=== PATIENT | male | born 1945 | race Caucasian/White ===

== ENCOUNTER → 2018-02-21 | Outpatient (CLI) | payer MEDICARE, OTHER ==
[2018-02-21 17:09] LABS: ANION GAP 11 (5-19); BLOOD UREA NITROGEN 22 mg/dL (7-20); CALCIUM 9.3 mg/dL (8.4-10.2); CARBON DIOXIDE 23 mmol/L (22-30); CHLORIDE 106 mmol/L (98-107); GLUCOSE 194 mg/dL (75-110); POTASSIUM 4.6 mmol/L (3.6-5.0); SODIUM 140.1 mmol/L (137-145)
== END ==
LOC: LAB 16:32
PROVIDERS: ATTEND Internal Medicine Cardiovascular Disease
DX: I10 Essential (primary) hypertension (principal); R60.9 Edema, unspecified; R06.00 Dyspnea, unspecified
CPT/HCPCS: 36415; 80048

== ENCOUNTER → 2018-03-10 | Outpatient (CLI) | payer MEDICARE, OTHER ==
[2018-03-10 18:11] LABS: ANION GAP 10 (5-19); BLOOD UREA NITROGEN 23 mg/dL (7-20); CALCIUM 9.5 mg/dL (8.4-10.2); CARBON DIOXIDE 24 mmol/L (22-30); CHLORIDE 106 mmol/L (98-107); GLUCOSE 115 mg/dL (75-110); POTASSIUM 4.7 mmol/L (3.6-5.0); SODIUM 140.2 mmol/L (137-145)
== END ==
LOC: LAB 17:27
PROVIDERS: ATTEND Internal Medicine Cardiovascular Disease
DX: I10 Essential (primary) hypertension (principal); R60.9 Edema, unspecified; Z79.899 Other long term (current) drug therapy
CPT/HCPCS: 36415; 80048

== ENCOUNTER → 2018-04-14 | Outpatient (CLI) | payer MEDICARE, OTHER ==
[2018-04-14 08:51] LABS: ALANINE AMINOTRANSFERASE 23 U/L (21-72); ALBUMIN 3.9 g/dL (3.5-5.0); ALKALINE PHOSPHATASE 101 U/L (38-126); ANION GAP 15 (5-19); ASPARTATE AMINO TRANSFERASE 14 U/L (17-59); BILIRUBIN,DIRECT 0.3 mg/dL (0.0-0.4); BILIRUBIN,TOTAL 0.6 mg/dL (0.2-1.3); BLOOD UREA NITROGEN 39 mg/dL (7-20); CALCIUM 9.5 mg/dL (8.4-10.2); CARBON DIOXIDE 23 mmol/L (22-30); CHLORIDE 102 mmol/L (98-107); CHOLESTEROL 151.59 mg/dL (0-200); GLUCOSE 161 mg/dL (75-110); POTASSIUM 5.3 mmol/L (3.6-5.0); SODIUM 140.2 mmol/L (137-145); TOTAL PROTEIN 7.2 g/dL (6.3-8.2); TRIGLYCERIDES 190 mg/dL (<150)
[2018-04-14 09:02] LABS: DIRECT LDL 86 mg/dL (<100)
== END ==
LOC: LAB 08:19
PROVIDERS: ATTEND Internal Medicine Cardiovascular Disease
DX: E78.2 Mixed hyperlipidemia (principal); I10 Essential (primary) hypertension; R60.9 Edema, unspecified; Z79.899 Other long term (current) drug therapy
CPT/HCPCS: 36415; 80048; 80061; 80076

== ENCOUNTER → 2018-05-07 | Outpatient (CLI) | payer MEDICARE, OTHER ==
[2018-05-07 10:52] LABS: ALANINE AMINOTRANSFERASE 18 U/L (21-72); ALBUMIN 3.9 g/dL (3.5-5.0); ALKALINE PHOSPHATASE 95 U/L (38-126); ANION GAP 14 (5-19); ASPARTATE AMINO TRANSFERASE 15 U/L (17-59); BILIRUBIN,DIRECT 0.3 mg/dL (0.0-0.4); BILIRUBIN,TOTAL 0.5 mg/dL (0.2-1.3); BLOOD UREA NITROGEN 30 mg/dL (7-20); CALCIUM 9.3 mg/dL (8.4-10.2); CARBON DIOXIDE 23 mmol/L (22-30); CHLORIDE 103 mmol/L (98-107); CHOLESTEROL 156.19 mg/dL (0-200); GLUCOSE 129 mg/dL (75-110); POTASSIUM 4.6 mmol/L (3.6-5.0); SODIUM 140.2 mmol/L (137-145); TOTAL PROTEIN 7.1 g/dL (6.3-8.2); TRIGLYCERIDES 189 mg/dL (<150)
[2018-05-07 11:02] LABS: DIRECT LDL 93 mg/dL (<100)
[2018-05-07 11:06] LABS: VLDL CHOLESTEROL 37.8 mg/dL (10-31)
== END ==
LOC: LAB 09:37
PROVIDERS: ATTEND Internal Medicine Cardiovascular Disease
DX: E78.2 Mixed hyperlipidemia (principal); E11.9 Type 2 diabetes mellitus without complications; I10 Essential (primary) hypertension; E66.01 Morbid (severe) obesity due to excess calories; Z79.899 Other long term (current) drug therapy
CPT/HCPCS: 36415; 80048; 80061; 80076; 83036; 84443

== ENCOUNTER → 2018-08-24 | Outpatient (CLI) | payer MEDICARE, OTHER ==
[2018-08-24 08:55] LABS: ALANINE AMINOTRANSFERASE 29 U/L (21-72); ALBUMIN 3.5 g/dL (3.5-5.0); ALKALINE PHOSPHATASE 85 U/L (38-126); ANION GAP 8 (5-19); ASPARTATE AMINO TRANSFERASE 17 U/L (17-59); BILIRUBIN,DIRECT 0.1 mg/dL (0.0-0.4); BILIRUBIN,TOTAL 0.3 mg/dL (0.2-1.3); BLOOD UREA NITROGEN 23 mg/dL (7-20); CALCIUM 9.6 mg/dL (8.4-10.2); CARBON DIOXIDE 29 mmol/L (22-30); CHLORIDE 104 mmol/L (98-107); CHOLESTEROL 133.71 mg/dL (0-200); GLUCOSE 107 mg/dL (75-110); POTASSIUM 4.9 mmol/L (3.6-5.0); SODIUM 140.8 mmol/L (137-145); TOTAL PROTEIN 6.6 g/dL (6.3-8.2); TRIGLYCERIDES 171 mg/dL (<150)
[2018-08-24 09:06] LABS: DIRECT LDL 79 mg/dL (<100)
[2018-08-24 09:07] LABS: VLDL CHOLESTEROL 34.2 mg/dL (10-31)
== END ==
LOC: LAB 08:07
PROVIDERS: ATTEND Physician Assistant
DX: K59.00 Constipation, unspecified (principal); E78.2 Mixed hyperlipidemia; R06.02 Shortness of breath; I10 Essential (primary) hypertension; Z79.899 Other long term (current) drug therapy
CPT/HCPCS: 36415; 80048; 80061; 80076; 83880; 84443

== ENCOUNTER → 2018-09-14 | Outpatient (CLI) | payer MEDICARE, OTHER ==
[2018-09-14 08:03] LABS: ANION GAP 11 (5-19); BLOOD UREA NITROGEN 32 mg/dL (7-20); CARBON DIOXIDE 28 mmol/L (22-30); CHLORIDE 101 mmol/L (98-107); GLUCOSE 135 mg/dL (75-110); POTASSIUM 4.1 mmol/L (3.6-5.0); SODIUM 139.9 mmol/L (137-145)
== END ==
LOC: LAB 06:52
PROVIDERS: ATTEND Internal Medicine Cardiovascular Disease
DX: I10 Essential (primary) hypertension (principal); E11.9 Type 2 diabetes mellitus without complications; E66.01 Morbid (severe) obesity due to excess calories; Z79.899 Other long term (current) drug therapy
CPT/HCPCS: 36415; 80048; 83036; 83735; 84443

== ENCOUNTER 2018-09-17 06:48 | Day surgery (SDC) | payer MEDICARE, OTHER ==
[2018-09-17] MEDS ORDERED: PROPOFOL INJ 200 MG/20 ML VIAL IV ONE (07:22)
[2018-09-17 09:01] VITALS: BP 131/60
--- NOTE | 2018-09-17 12:47 | Operative Report ---
Operative Report DATE OF SURGERY: 09/17/18 Operative Report: The risks, benefits and alternatives of the procedure including the risk of bleeding, perforation requiring surgery have been explained to the patient in detail and informed consent was obtained. Patient is taken back to the endoscopy suite and placed in the left, lateral decubital position. Timeout was called. Propofol medication is administered. Rectal examination is done which did not reveal any masses, tears or fissures. An Olympus videoscope was introduced into the patient's rectum. The scope was then carefully advanced all the way to the cecum. The cecum was identified by the usual anatomical landmarks of the ileocecal valve as well as the appendiceal office. Photodocumentation was obtained. The scope was then sequentially pulled back via the rest segments of the colon including the ascending colon, hepatic flexure, transverse colon, splenic flexure, descending colon and finally into the rectosigmoid portions of the colon. Retroflexion maneuver was performed. PREOPERATIVE DIAGNOSIS: Change in bowel habits POSTOPERATIVE DIAGNOSIS: Diverticulosis without any evidence of diverticulitis. Patient has a very redundant colon. Not able to get deep intubation into the cecum. Internal hemorrhoids. Random biopsies taken on the right side of the colon. OPERATION: Colonoscopy with biopsy SURGEON: WILBERTO BROWN ANESTHESIA: LMAC TISSUE REMOVED OR ALTERED: As noted above. COMPLICATIONS: None. ESTIMATED BLOOD LOSS: None. INTRAOPERATIVE FINDINGS: As noted above. PROCEDURE: Patient tolerated the procedure well. No immediate postprocedure complications are noted. Patient is discharged in good condition. Discharge date 09/17/2018. Discharge diet: Regular. Discharge activity: Regular. 2-3-week follow-up to discuss findings. Patient is instructed to call the office or proceed to the emergency room should there be any further problems or questions. Wait on the pathology.
== END 2018-09-17 09:10 | disposition home or self-care (01) ==
LOC: END 06:48
PROVIDERS: ATTEND Internal Medicine Gastroenterology
DX: K57.30 Diverticulosis of large intestine without perforation or abscess without bleeding (principal); K64.8 Other hemorrhoids; E11.40 Type 2 diabetes mellitus with diabetic neuropathy, unspecified; E11.22 Type 2 diabetes mellitus with diabetic chronic kidney disease; I12.9 Hypertensive chronic kidney disease with stage 1 through stage 4 chronic kidney disease, or unspecified chronic kidney disease; N18.9 Chronic kidney disease, unspecified; G47.30 Sleep apnea, unspecified; J44.9 Chronic obstructive pulmonary disease, unspecified; G47.33 Obstructive sleep apnea (adult) (pediatric); E66.01 Morbid (severe) obesity due to excess calories; Z68.41 Body mass index [BMI] 40.0-44.9, adult; Z79.84 Long term (current) use of oral hypoglycemic drugs; Z79.82 Long term (current) use of aspirin; Z79.899 Other long term (current) drug therapy; Z79.4 Long term (current) use of insulin
CPT/HCPCS: 45380; 82962; 88305 ×2; J2704; 811

== ENCOUNTER → 2018-10-13 | Outpatient (CLI) | payer MEDICARE, OTHER ==
[2018-10-13 08:57] LABS: ANION GAP 11 (5-19); BLOOD UREA NITROGEN 35 mg/dL (7-20); CALCIUM 8.8 mg/dL (8.4-10.2); CARBON DIOXIDE 29 mmol/L (22-30); CHLORIDE 100 mmol/L (98-107); GLUCOSE 180 mg/dL (75-110); POTASSIUM 4.6 mmol/L (3.6-5.0); SODIUM 140.3 mmol/L (137-145)
== END ==
LOC: LAB 08:22
PROVIDERS: ATTEND Internal Medicine Cardiovascular Disease
DX: R60.9 Edema, unspecified (principal); I10 Essential (primary) hypertension; Z79.899 Other long term (current) drug therapy
CPT/HCPCS: 36415; 80048

== ENCOUNTER → 2019-06-14 | Outpatient (CLI) | payer MEDICARE, OTHER ==
[2019-06-14 09:00] LABS: ALBUMIN 3.9 g/dL (3.5-5.0); ALKALINE PHOSPHATASE 101 U/L (38-126); ANION GAP 9 (5-19); ASPARTATE AMINO TRANSFERASE 20 U/L (17-59); BILIRUBIN,DIRECT 0.3 mg/dL (0.0-0.4); BILIRUBIN,TOTAL 0.5 mg/dL (0.2-1.3); BLOOD UREA NITROGEN 22 mg/dL (7-20); CALCIUM 9.1 mg/dL (8.4-10.2); CARBON DIOXIDE 26 mmol/L (22-30); CHLORIDE 104 mmol/L (98-107); GLUCOSE 98 mg/dL (75-110); POTASSIUM 4.6 mmol/L (3.6-5.0); TOTAL PROTEIN 7.4 g/dL (6.3-8.2); TRIGLYCERIDES 215 mg/dL (<150)
[2019-06-14 09:11] LABS: DIRECT LDL 89 mg/dL (<100)
== END ==
LOC: LAB 08:07
PROVIDERS: ATTEND Physician Assistant
DX: E78.2 Mixed hyperlipidemia (principal); I10 Essential (primary) hypertension; R06.02 Shortness of breath; Z79.899 Other long term (current) drug therapy
CPT/HCPCS: 36415; 80048; 80061; 80076; 83880

== ENCOUNTER → 2019-10-18 | Outpatient (CLI) | payer MEDICARE, OTHER ==
[2019-10-18 09:49] LABS: ALBUMIN 3.8 g/dL (3.5-5.0); ALKALINE PHOSPHATASE 110 U/L (38-126); ANION GAP 8 (5-19); ASPARTATE AMINO TRANSFERASE 17 U/L (17-59); BILIRUBIN,TOTAL 0.5 mg/dL (0.2-1.3); BLOOD UREA NITROGEN 30 mg/dL (7-20); CALCIUM 9.3 mg/dL (8.4-10.2); CARBON DIOXIDE 27 mmol/L (22-30); CHLORIDE 101 mmol/L (98-107); CHOLESTEROL 171.63 mg/dL (0-200); GLUCOSE 114 mg/dL (75-110); POTASSIUM 4.6 mmol/L (3.6-5.0); TOTAL PROTEIN 7.1 g/dL (6.3-8.2); TRIGLYCERIDES 120 mg/dL (<150)
[2019-10-18 10:00] LABS: DIRECT LDL 105 mg/dL (<100)
== END ==
LOC: OD 08:10
PROVIDERS: ATTEND Physician Assistant
DX: E78.2 Mixed hyperlipidemia (principal); I10 Essential (primary) hypertension; Z79.899 Other long term (current) drug therapy
CPT/HCPCS: 36415; 80048; 80061; 80076

== ENCOUNTER → 2019-12-09 | Outpatient (CLI) | payer MEDICARE, OTHER ==
[2019-12-09 09:23] LABS: ALBUMIN 4.1 g/dL (3.5-5.0); ALKALINE PHOSPHATASE 98 U/L (38-126); ASPARTATE AMINO TRANSFERASE 18 U/L (17-59); BILIRUBIN,TOTAL 0.5 mg/dL (0.2-1.3); TOTAL PROTEIN 7.2 g/dL (6.3-8.2)
== END ==
LOC: OD 07:42
PROVIDERS: ATTEND Physician Assistant
DX: E78.2 Mixed hyperlipidemia (principal); Z79.899 Other long term (current) drug therapy
CPT/HCPCS: 36415; 80076

== ENCOUNTER → 2019-12-13 | Outpatient (CLI) | payer MEDICARE, OTHER ==
[2019-12-13 09:29] LABS: CHOLESTEROL 122.06 mg/dL (0-200); TRIGLYCERIDES 157 mg/dL (<150)
[2019-12-13 09:40] LABS: DIRECT LDL 71 mg/dL (<100)
[2019-12-13 09:41] LABS: VLDL CHOLESTEROL 31.4 mg/dL (10-31)
== END ==
LOC: OD 08:07
PROVIDERS: ATTEND Physician Assistant
DX: E78.2 Mixed hyperlipidemia (principal); Z79.899 Other long term (current) drug therapy
CPT/HCPCS: 36415; 80061

== ENCOUNTER → 2020-03-14 | Outpatient (CLI) | payer MEDICARE, OTHER ==
[2020-03-14 10:48] LABS: ALBUMIN 3.8 g/dL (3.5-5.0); ALKALINE PHOSPHATASE 99 U/L (38-126); ANION GAP 8 (5-19); ASPARTATE AMINO TRANSFERASE 18 U/L (17-59); BILIRUBIN,DIRECT 0.3 mg/dL (0.0-0.4); BILIRUBIN,TOTAL 0.5 mg/dL (0.2-1.3); BLOOD UREA NITROGEN 26 mg/dL (7-20); CALCIUM 9.8 mg/dL (8.4-10.2); CARBON DIOXIDE 29 mmol/L (22-30); CHLORIDE 103 mmol/L (98-107); CHOLESTEROL 146.13 mg/dL (0-200); GLUCOSE 98 mg/dL (75-110); POTASSIUM 5.3 mmol/L (3.6-5.0); TOTAL PROTEIN 6.8 g/dL (6.3-8.2); TRIGLYCERIDES 196 mg/dL (<150)
[2020-03-14 10:59] LABS: DIRECT LDL 80 mg/dL (<100)
[2020-03-14 11:06] LABS: VLDL CHOLESTEROL 39.2 mg/dL (10-31)
== END ==
LOC: OD 08:05
PROVIDERS: ATTEND Physician Assistant
DX: E78.2 Mixed hyperlipidemia (principal); I10 Essential (primary) hypertension; Z79.899 Other long term (current) drug therapy
CPT/HCPCS: 36415; 80048; 80061; 80076

== ENCOUNTER → 2020-06-19 | Outpatient (CLI) | payer MEDICARE, OTHER ==
[2020-06-19 09:49] LABS: ANION GAP 6 (5-19); BLOOD UREA NITROGEN 23 mg/dL (7-20); CALCIUM 9.1 mg/dL (8.4-10.2); CARBON DIOXIDE 28 mmol/L (22-30); CHLORIDE 103 mmol/L (98-107); GLUCOSE 99 mg/dL (75-110); POTASSIUM 5.2 mmol/L (3.6-5.0)
== END ==
LOC: OD 08:02
PROVIDERS: ATTEND Physician Assistant
DX: R06.02 Shortness of breath (principal); E78.5 Hyperlipidemia, unspecified; I10 Essential (primary) hypertension
CPT/HCPCS: 36415; 80048